=== PATIENT | female | born 1960 | race American Indian/Alaskan Native ===

== ENCOUNTER 2021-01-12 09:32 | Outpatient (CLI) | payer OTHER | END 2021-01-12 09:33 | disposition home or self-care (01) | LOC: PF 09:32 | PROVIDERS: ATTEND Internal Medicine | DX: J96.00 Acute respiratory failure, unspecified whether with hypoxia or hypercapnia (principal); F32.9 Major depressive disorder, single episode, unspecified; F41.9 Anxiety disorder, unspecified | CPT/HCPCS: 94010 ==

== ENCOUNTER 2021-10-18 08:30 | Outpatient (CLI) | payer OTHER ==
--- NOTE | 2021-10-18 13:44 | XRay Report ---
XR knees standing AP Bilateral INDICATION / CLINICAL INFORMATION: BILATERAL KNEE PAIN. COMPARISON: None available. FINDINGS: THE LATERAL RIGHT KNEE IS INCOMPLETELY IMAGED. Mild bilateral knee osteoarthritis. There is mild narrowing of the right knee medial compartment and left knee lateral compartment. No acute fracture or malalignment. No focal soft tissue abnormality i s visualized. Signer Name: Randell Huddleston MD Signed: 10/18/2021 1:40 PM Workstation Name: [id number]
== END 2021-10-18 08:31 | disposition home or self-care (01) ==
LOC: XRAY 08:30
PROVIDERS: ATTEND Internal Medicine
DX: M17.0 Bilateral primary osteoarthritis of knee (principal); M25.862 Other specified joint disorders, left knee; M25.861 Other specified joint disorders, right knee
CPT/HCPCS: 73565